=== PATIENT | female | born 1980 | race Caucasian/White ===

== ENCOUNTER 2023-02-07 07:34 | Outpatient (CLI) | payer BC, SELFPAY | END 2023-02-07 07:35 | disposition home or self-care (01) | LOC: NFLDREF 15:54 | PROVIDERS: Visit Provider Surgery | DX: E78.5 Hyperlipidemia, unspecified (principal) | CPT/HCPCS: 80061 ==

== ENCOUNTER 2023-05-21 14:55 | Outpatient (CLI) | payer BC, SELFPAY ==
--- OUTSIDE RECORDS SUMMARY | 2023-05-21 14:58 | XMS_ITS | Continuity of Care Document ---
Author Name Unknown Organization [facility] Address [address] [place] [address] Phone Care Team Providers Care Embedded Software Development Engineer Name Role Phone Coleman Eckert MD Unavailable Unavailable Allergies, Adverse Reactions, Alerts Substance Reaction Status Criticality No Known Allergies Active No Inform ation Medications Medication Instructions Dosage Effective Dates (start - stop) Status Comments omeprazole 20 mg capsule,delayed release take 1 capsule by oral route every day before a meal 20 MG - Active Procedures Procedure Date Office/Outpatient Visit, [facility] Advance Directives Directive Yes / No Effective Date File Name No Information Encounters Encounter Description Practice Location Reason(s) For Visit Diagnoses Date Provider Providers Copied on Encounter [facility], [address], [place], [address], [place] tel:[phone] [facility] , No Information 9 Babar Cee. [facility] [address], [place], [address], [place]. tel:[phone] Office/Outpa tient Visit, [facility], [address], [place], [address], [place] tel:[phone] [facility] , Psoriatic arthritis (chief complaint) Arthropathic psoriasis, unspecifiedO ther psoriasis 9 Babar Cee. [facility] [address], [place], [address], [place]. tel:[phone] Referring Provider: Coleman Ngo, [facility] [address], [place], [address]. tel:[phone] Family History Family Member Type Diagnosis Age At Onset No Information Payers Payer name Insurance type Covered democrat ID Authordeirdre wilkerson(s) [facility] [id number] Social History Type Description Quantity Date Captured Comments Sex Female Smoking Status No Information Chief Complaint And Reason For Visit No Information Reason For Referral Reason For Referral No Information Plan Of Treatment Date Type Action Status No Information History Of Present Illness Encounter Date Complaint History Of Prese nt Illness Psoriatic arthritis Functional Status Date Functional Assessmen t No Information Instructions Date Instruction Additional Infor mation She has very mild ps oriasis as well. She feels no need to proceed with any more aggressive treatment of that. Related to Other psoriasis Overall, she has don e very well with her psoriatic arthritis since I last saw her more than 8 years ago. She has not developed any deformities and has only mild tenderness in a few joints. There is no active synovitis on exam today. I'm going to do x-rays of her hands but I did not expecting to recommend any specific treatment. I did encourage her to call if symptoms worsen. Related to Arthropathic psoriasis, unspecified Assessments Type Assessment Date No Information Patient Care Teams Name Effective Dates (start - stop) Status Members No Information
--- NOTE | 2023-05-21 15:00 | CRLHL7_ITS ---
For Patients: As a result of the Century Cures Act, medical imaging exams and procedure reports are released immediately into your electronic medical record. You may view this report before your referring provider. If you have questions, please contact your health care provider. BILATERAL SCREENING MAMMOGRAM WITH COMPUTER-AIDED DETECTION AND TOMOSYNTHESIS TECHNIQUE: CC and MLO views were obtained. These mammographic images have been obtained using full-field digital technique. These mammographic images were interpreted with the benefit of computer-aided detection. Breast tomosynthesis was used in this interpretation. COMPARISON FILM: 04/19/22, 04/17/21, 04/06/20. FINDINGS: The breasts are heterogeneously dense, which may obscure small masses. IMPRESSION: There is no radiographic evidence for malignancy. ASSESSMENT: BI-RADS Category 1: Negative RECOMMENDATION: Routine screening mammogram in 1 year. A lay language report of this examination will be provided to the patient. BRENT OMALLEY M.D. Diagnostic Radiologist [email or web address] ANITRA/tad Transcribed: 05/22/2023, 5:[address]/Dictated by: Brent Omalley MD @ 05/22/2023 12:21:00 PM (Electronically Signed)
== END 2023-05-21 14:56 | disposition home or self-care (01) ==
LOC: MAMMO 14:57
PROVIDERS: Visit Provider Surgery
DX: Z12.31 Encounter for screening mammogram for malignant neoplasm of breast (principal); R92.2 Inconclusive mammogram
CPT/HCPCS: 77063; 77067

== ENCOUNTER 2024-04-22 10:00 | Outpatient (CLI) | payer BC, SELFPAY ==
--- OUTSIDE RECORDS SUMMARY | 2024-04-22 10:03 | XMS_ITS | Continuity of Care Document ---
Author Organization [facility] Address [address] [place] [address] Phone Care Team Providers Care Paint Mixer Machine Name Role Phone Coleman Eckert MD Unavailable Unavailable Allergies, Adverse Reactions, Alerts Substance Reaction Status Criticality No Known Allergies Active No Inform ation Medications Medication Instructions Dosage Effective Dates (start - stop) Status Comments omeprazole 20 mg capsule,delayed release take 1 capsule by oral route every day before a meal 20 MG - Active Procedures Procedure Date Office/Outpatient Visit, [facility] Advance Directives Directive Yes / No Effective Date File Name No Information Encounters Encounter Description Practice Location Reason(s) For Visit Diagnoses Date Provider Providers Copied on Encounter [facility], [address], [place], [address], [place] tel:[phone] [facility] , No Information 9 Babar Cee. [facility] [address], [place], [address], [place]. tel:[phone] Office/Outpa tient Visit, [facility], [address], [place], [address], [place] tel:[phone] [facility] , Psoriatic arthritis (chief complaint) Arthropathic psoriasis, unspecifiedO ther psoriasis 9 Babar Cee. [facility] [address], [place], [address], [place]. tel:[phone] Referring Provider: Coleman Ngo, [facility] [address], [place], [address]. tel:[phone] Family History Family Member Type Diagnosis Age At Onset No Information Payers Payer name Insurance type Covered alliance party ID Authordeirdre wilkerson(s) [facility] [id number] Social History Type Description Quantity Date Captured Comments Sex Female Smoking Status No Information Chief Complaint And Reason For Visit No Information Reason For Referral Reason For Referral No Information History Of Present Illness Encounter [...]
--- OUTSIDE RECORDS SUMMARY | 2024-04-22 10:04 | XMS_ITS | Clinical Summary ---
Author Organization [facility] Address [place], [place] [address] Care Team Providers Care Loom Control Chain Builder Name Role Phone Bhargavi Hall MD Primary Care Provider [phone] Allergies No known active allergies Medications Medication Sig Dispensed Refills Start Date End Date Status Breast Pump - PurchaseIndications: Lactating mother For home use. Gestation age at delivery: 41 weeks. Reason for need: lactating. Length of need: 99y 1 Device 12/29/2016 Active Active Problems Problem Noted Date Diagnosed Date Post-dates 12/28/2016 Normal delivery 09/10/2012 Resolved Problems Problem Noted Date Diagnosed Date Resolved Date Normal delivery 04/29/2009 09/10/2012 Other specified screening(V28.89) 10/19/2008 09/10/2012 Supervision of normal first 10/19/2008 04/30/2009 Immunizations Name Administration Dates Next Due Tdap 11/11/2008 Tdap, Unspecified 09/27/2016 Family History Medical History Relation Name Comments Good Health Father Heart Disease Mother hashimotos Hyperlipidemia Mother Good Health Sister Relation Name Status Comments Father Mother Sister Social History Tobacco Use Types Packs/Day Years Used Date Smoking Tobacco: Never Smokeless Tobacco: Never Tobacco Cessation:Counseling Given: Yes Alcohol Use Standard Drinks/Week Comments Yes 2 (1 standard drink = 0.6 oz pur e alcohol) quit with Sex and Gender Information Value Date Recorded Sex Assigned at Not on file Gender Identity Not on file Sexual Orientation Not on file Obstetrics History Para Term AB IAB SAB Ectopic Multiple Livin g Live Births 4 3 3 0 1 0 1 0 0 3 3 Date Outcome GA Total Labor Labor/2nd/3rd Weight Sex Type Anes PTL Madai A1 A5 Name Clin 2008 Term 40w 0d F Vag Livin g Coco 2011 Term 40w 4d 3.86 kg (8 lb 8 oz) M Vag Livin g 9 9 ERICSO N,BB Delivery Location:[facility] 2015 SAB 10w 0d 2016 Term 41w 0d 3.38 kg (7 lb 7.2 oz) F Vag Epidur al N Livin g 9 9 ERICSO N,BG DANIEL [place] Delivery Location:[facility] Last Filed Vital Signs Vital Sign Reading Time Taken Comments Blood Pressure 111/55 12/28/2016 11:40 PM TOMOGRAPHY TECHNOLOGIST Pulse 65 12/28/2016 11:40 PM TOMOGRAPHY TECHNOLOGIST Temperature 36.9 ??C (98.4 ??F) 12/29/2016 1 0:00 AM TOMOGRAPHY TECHNOLOGIST Respiratory Rate 16 12/28/2016 11:4 0 PM TOMOGRAPHY TECHNOLOGIST Oxygen Saturation 98% 12/28/2016 11: 40 PM TOMOGRAPHY TECHNOLOGIST Inhaled Oxygen Concentration - - Weight 79.3 kg (174 lb 12.8 oz) 017 10:32 AM TOMOGRAPHY TECHNOLOGIST Height 167.6 cm (5' 6) 12/27/2016 10:3 2 AM TOMOGRAPHY TECHNOLOGIST Body Mass Index 28.21 12/27/2016 10:32 AM TOMOGRAPHY TECHNOLOGIST Plan of Treatment Health Maintenance Due Date Last Done Comments Depression screening for age 12+ 1990 BMI (ht and wt on same day) for age 18+ 1996 Hepatitis C screening for ag e 18-79 1996 Pap test for age 21-65 10/26/2011 10/26/2008 COVID-19 vaccine series ( season) 2023 Lipids for age 45-75 2023 Mammogram for age 45-75 2023 Influenza for age 9-49 07/12/2024 Colonoscopy through age 75 08/24/202508/24, 08/24/2020, 08/24/2020 Tetanus booster 09/27/2026 09/27/2016, 11/11/2008 HIV for age 15-65 Completed 10/19/2008 Tdap Completed 09/27/2016, 11/11/2008 Pneumococcal series for age 6-64 Aged Out No longer eligible b ased on patient's age to complete this topic Procedures Procedure Name Priority Date/Time Associated Diagnosis Comments COLONOSCOPY 08/24/2020 8:27 AM CDT OUTSOLE CEMENTER MACHINE THIN PREP PAP SCREEN IMAGED Routine 10/26/2008 10:22 AM TOMOGRAPHY TECHNOLOGIST Supervision of Normal First ANTI HIV 1/2 Routine 10/19/2008 9:22 AM TOMOGRAPHY TECHNOLOGIST Supervision of Normal First from Last 3 Months or Most Recently Relevant to Health Maintenance Results * COLONOSCOPY (08/24/2020 8:27 AM CDT) 08/24/2020 8:27 AM CDT Narrative Transcriptions Addi Bueno MD - 08/24/2020 9:49 AM CDT Patient Name: Anna Romeo Procedure Date: 08/24/2020 Gender: Female Date of : 1980 Admit Type: Outpatient Procedure: Colonoscopy Proceduralist: Addi Bueno MD , Melissa Hastings (Nurse) Indications/Pre-Op Diagnosis: Colon cancer screening in patient with 1st-degree relative having advanced adenomaof the colon before age 60, This is thepatient's first colonoscopy Medications: Fentanyl 100 micrograms IV, Midazolam 2 mgIV, The level of sedation administered wasmoderate Procedure Description: The patient had risks, benefits and alternatives explained to andgave informed consent. The patient had a stable cardiopulmonary status and judged an adequate candidate for conscious sedation. The colonoscope was passed through the anus and advanced to 5 cm into the ileum. The colonoscopy was performed without difficulty. Thepatient tolerated the procedure well. The quality of the bowel preparationwas excellent. The terminal ileum, ileocecal valve, appendiceal orifice,and rectum were photographed. Complications: No immediate complications. Estimated Blood Loss & Specimen: Estimated blood loss: none. Specimen collected - None Findings: The perianal and digital rectal examinations were normal. The terminal ileum appeared normal. The entire examined colon appeared normal on direct and retroflexion views. Impressions/Post-Op Diagnosis: - The examined portion of the ileum was normal. - The entire examined colon is normal on direct and retroflexionviews. - No specimens collected. Recommendation: - Patient has a contact number available for emergencies. The signsand symptoms of potential delayed complications were discussed with the patient. Return to normal activities tomorrow. Written discharge instructions were provided to the patient. - Resume previous diet. - Continue present medications. - Repeat colonoscopy in 5 years for screening purposes. Moderate Sedation: Moderate (conscious) sedation was administered by the endoscopy nurse and supervised by the endoscopist. The following parameters were monitored: oxygen saturation, heart rate, respiratory rate, blood pressure, adequacy of pulmonary ventilation and reponse to care. [facility] and nursing notes for moderate sedation details. Total physician intraservice time was 27 minutes. Addi Bueno MD 08/24/2020 9:49:31 AM This report has been signed electronically. Note Initiated On: 08/24/2020 8:27 AM Procedure Code(s): --- Professional --- 30913, Colonoscopy, flexible; diagnostic, including collection of specimen(s) bybrushing or washing, when performed (separateprocedure) Diagnosis Code(s): --- Professional --- Z83.71, Family history of colonic polyps CPT copyright 2019 [employer]. All rights reserved. The codes documented in this report are preliminary and upon medical librarian reviewmay be revised to meet current compliance requirements. Scope In: 9:19:52 AM Scope Withdrawal Time 0 hours 16 minutes 33 seconds Scope Out: 9:44:50 AM Addi Bueno MD PROCEDURE ORD * OUTSOLE CEMENTER MACHINE THIN PREP PAP SCREEN IMAGED (10/26/2008 10:22 AM TOMOGRAPHY TECHNOLOGIST) CYTOLOGY ??CYTOPATHOLOGY REPORT ??[facility] ?? Status: Final Report ? [id number] ?? CLINICAL INFORMATION ?Date of Last LMP ?: OB ?Last Pap Date ? : 08/2007 ?Last Pap Result ? : NIL ?ABN [place]/Bx Past 5 YRS: None ?Hormone Usage ? : None ?Menstrual Status ?: ?[place]/Bx done today ?: No ?Additional Data ? : None given ?? HPV Request ?: HPV if ASCUS ?? SPECIMEN SOURCE ?: Cervical/vaginal ThinPrep Vial, screening ?? SPECIMEN ADEQUACY ?: Satisfactory for evaluation No ?endocervical component seen in a ?patient. ? INTERPRETATION/RES ULT: ?Negative for intraepithelial lesion or malignancy (NIL) ? Cytology 1st Screener : ??ll ?? Signed by: ? ll ?? This specimen was screened by the FDA approved ThinPrep Imaging ?? System and manually reviewed. ?? NOTE: The Pap test is a screening technique, not a diagnostic ?? procedure. It is used primarily to screen for squamous cancers and ?? precursor lesions. Published studies have shown that it is subject to ?? both false negative and false positive results. The pap test should ?? not be used as the sole means to diagnose or exclude pre-malignant and ?? malignant lesions. ?? COLLECTED: 10/26/08 ?? ACCESSIONED: 10/26/08 ?? SIGNED: 11/01/08 [facility] PAP [place] CODE NIL [facility] Cervical (Cervical) 10/26/2008 10:22 AM TOMOGRAPHY TECHNOLOGIST 10/26/2008 10:20 AM TOMOGRAPHY TECHNOLOGIST Apryl Mccallum MD PATHOLOGY/CYTOLO GY [facility] [place] ZIP [address] [place] [address] * ANTI HIV 1/2 (10/19/2008 9:22 AM TOMOGRAPHY TECHNOLOGIST) ANTI HIV 1/2 Non-reacti ve [facility] Blood specimen (specimen) BLOOD SPECIMEN / Unknown 10/19/2008 9:22 AM TOMOGRAPHY TECHNOLOGIST 10/19/2008 9:19 AM TOMOGRAPHY TECHNOLOGIST Apryl Mccallum MD SEND OUTS [facility] [place] [address]IP [address] [place] [id number] from Last 3 Months or Most Recently Relevant to Health Maintenance Advance Directives * Full Code (Latest Code Status on File) Date Activated Date Inactivated Comments 12/28/2016 7:24 AM 12/29/2016 4:10 PM * Full Code Date Activated Date Inactivated Comments 12/27/2016 10:52 AM 12/28/2016 7:24 AM * Full Code Date Activated Date Inactivated Comments 12/25/2016 12:55 AM 12/25/2016 4:50 AM * Full Code Date Activated Date Inactivated Comments 12/07/2016 8:47 AM 12/08/2016 2:18 AM * Full Code Date Activated Date Inactivated Comments 09/09/2012 1:34 PM 09/10/2012 8:55 PM Care Teams Loom Control Chain Builder Relationship Specialty Start Date End Date Bhargavi Hall MD [address] [facility] [address] [place], [place] [id number] PCP - General Internal Medicine 12/26/16
--- NOTE | 2024-04-22 10:15 | CRLHL7_ITS ---
For Patients: As a result of the Cures Act, medical imaging exams and procedure reports are released immediately into your electronic medical record. You may view this report before your referring provider. If you have questions, please contact your health care provider. BILATERAL SCREENING MAMMOGRAM WITH COMPUTER-AIDED DETECTION AND TOMOSYNTHESIS TECHNIQUE: CC and MLO views were obtained. These mammographic images have been obtained using full-field digital technique. These mammographic images were interpreted with the benefit of computer-aided detection. Breast Tomosynthesis was used in this interpretation. COMPARISON FILM: 05/21/23, 04/19/22, 04/17/21. FINDINGS: The breasts are heterogeneously dense, which may obscure small masses IMPRESSION: There is no radiographic evidence for malignancy. ASSESSMENT: BI-RADS Category 1: Negative RECOMMENDATION: Routine screening mammogram in 1 year. A lay language report of this examination will be provided to the patient. VIRY PERSAUD M.D. Diagnostic/Nuclear Medicine Radiologist [email or web address] ELENITA:nyla Transcribed: 2:29 p.mYue redmond/Dictated by: Viry Persaud MD @ 04/23/2024 9:22:00 AM (Electronically Signed)
== END 2024-04-22 10:01 | disposition home or self-care (01) ==
LOC: MAMMO 10:01
PROVIDERS: Visit Provider Surgery
DX: Z12.31 Encounter for screening mammogram for malignant neoplasm of breast (principal); R92.2 Inconclusive mammogram
CPT/HCPCS: 77063; 77067

== ENCOUNTER 2025-01-26 07:19 | Outpatient (CLI) | payer BC, SELFPAY | END 2025-01-26 07:20 | disposition home or self-care (01) | PROVIDERS: Visit Provider Surgery | DX: Z13.6 Encounter for screening for cardiovascular disorders (principal); Z13.818 Encounter for screening for other digestive system disorders | CPT/HCPCS: 80061; 80076; 84478 ==

== ENCOUNTER 2025-05-10 11:06 | Outpatient (CLI) | payer BC, SELFPAY ==
--- NOTE | 2025-05-10 10:45 | CRLHL7_ITS ---
For Patients: As a result of the Century Cures Act, medical imaging exams and procedure reports are released immediately into your electronic medical record. You may view this report before your referring provider. If you have questions, please contact your health care provider. INDICATION: BILATERAL SCREENING MAMMOGRAM, ASYMPTOMATIC 44 Y/O FEMALE COMPARISON: 04/22/2024, 05/21/2023, 04/19/2022 TECHNIQUE: Digital mammogram in CC and MLO projections including computer-aided detection (CAD) and tomosynthesis. BREAST COMPOSITION: The breasts are heterogeneously dense, which may obscure small masses. FINDINGS: No suspicious findings. ASSESSMENT: BI-RADS 1 Negative RECOMMENDATION: Annual screening mammogram. A lay language report of this examination will be provided to the patient. Dictated by: Brent Caldwell MD @ 05/10/2025 11:46:15 (Electronically Signed)
--- OUTSIDE RECORDS SUMMARY | 2025-05-10 11:08 | XMS_ITS | Clinical Summary ---
Author Organization [facility] Address [address] [place] [address] Care Team Providers Care Manager Renewable Energy Name Role Phone Bhargavi Hall MD Primary Care Provider [phone] Allergies No known active allergies Medications Breast Pump - PurchaseIndicat ions:Lactating mother (HC) For home use. Gestation age at delivery: 41 weeks. Reason for need: lactating. Length of need: 99y 1 Device 7 Active Active Problems Problem Noted Date Diagnosed Date Post-dates 12/28/2016 Normal delivery 09/10/2012 Resolved Problems Problem Noted Date Diagnosed Date Resolved Date Normal delivery 04/29/2009 09/10/2012 Other specified screening(V28.89) 10/19/2008 09/10/2012 Supervision of normal first 10/19/2008 04/30/2009 Immunizations Immunization Administration Dates Next Due Tdap 11/11/2008 Tdap, [...] 0.6 oz pur e alcohol) quit with Comments No Sex and Gender Information Value Date Recorded Sex Assigned at Not on file Legal Sex Female 6:22 AM OUTSIDE PLANT TECHNICIAN Gender Identity Not on file Sexual Orientation Not on file 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 Not on file Not on file Obstetrics History Para Term [...] Livin g 9 9 ERICSO N,BB Delivery Location:[facility] 2015 SAB 10w 0d 2016 Term 41w 0d 3.38 kg (7 lb 7.2 oz) F Vag Epidur al N Livin g 9 9 ERICSO N,BG DANIEL Rossi rand Delivery Location:[facility] Last Filed Vital Signs Vital Sign Reading Time Taken Comments Blood Pressure 111/55 12/28/2016 11:40 PM OUTSIDE PLANT TECHNICIAN Pulse 65 12/28/2016 11:40 PM OUTSIDE PLANT TECHNICIAN Temperature 36.9 C (98.4 F) 12/29/2016 10:00 AM OUTSIDE PLANT TECHNICIAN Respiratory Rate 16 12/28/2016 11:4 0 PM OUTSIDE PLANT TECHNICIAN Oxygen Saturation 98% 12/28/2016 11: 40 PM OUTSIDE PLANT TECHNICIAN Inhaled Oxygen Concentration - - Weight 79.3 kg (174 lb 12.8 oz) 017 10:32 AM OUTSIDE PLANT TECHNICIAN Height 167.6 cm (5' 6) 12/27/2016 10:3 2 AM OUTSIDE PLANT TECHNICIAN Body Mass Index 28.21 12/27/2016 10:32 AM OUTSIDE PLANT TECHNICIAN Plan of Treatment Health Maintenance Due Date Last Done Comments Depression screening for age 12+ 1990 BMI (ht and wt on same day) for age 18+ 1996 Hepatitis C screening for ag e 18-79 1996 Hepatitis B series for 19+ ( 1 of 3 - 19+ 3-dose series) 1997 Pap test for age 21-65 10/26/2011 10/26/2008 Lipids for age 45-75 2023 Mammogram for age 45-75 2023 COVID-19 vaccine series ( season) 2024 Influenza Vaccine (Season Ended) 2025 Colonoscopy through age 75 08/24/202508/24, 08/24/2020, 08/24/2020 Tetanus booster 09/27/2026 09/27/2016, 11/11/2008 HIV for age 15-65 Completed 10/19/2008 Tdap Completed 09/27/2016, 11/11/2008 Pneumococcal series for age 6-49 Aged Out No longer eligible b ased on patient's age to complete this topic Procedures Procedure Name Priority Date/Time Associated Diagnosis Comments COLONOSCOPY 08/24/2020 8:27 AM CDT GAS CUTTING MACHINE OPERATOR THIN PREP PAP SCREEN IMAGED Routine 10/26/2008 10:22 AM OUTSIDE PLANT TECHNICIAN Supervision of Normal First (HC) ANTI HIV 1/2 Routine 10/19/2008 9:22 AM OUTSIDE PLANT TECHNICIAN Supervision of Normal First (HC) from Last 3 Months or Most Recently [...] reponse to care. [facility] and nursing notes for moderate sedation details. Total physician intraservice time was 27 minutes. Addi Bueno MD 08/24/2020 9:49:31 AM This report has been signed electronically. Note Initiated On: 08/24/2020 8:27 AM Procedure Code(s): --- Professional --- 67408, Colonoscopy, flexible; diagnostic, including collection of specimen(s) bybrushing or washing, when performed (separateprocedure) Diagnosis Code(s): --- Professional --- Z83.71, Family history of colonic polyps CPT copyright 2019 [employer]. All rights reserved. The codes documented in this report are preliminary and upon set up person reviewmay be revised to meet current compliance requirements. Scope In: 9:19:52 AM Scope Withdrawal Time 0 hours 16 minutes 33 seconds Scope Out: 9:44:50 AM us Addi Bueno MD PROCEDURE ORD Final Res ult * GAS CUTTING MACHINE OPERATOR THIN PREP PAP SCREEN IMAGED (10/26/2008 10:22 AM OUTSIDE PLANT TECHNICIAN) CYTOLOGY CYTOPATHOLOGY REPORT [facility] Status: Final Report [id number] CLINICAL INFORMATION Date of Last LMP : OB Last Pap Date : 08/2007 Last Pap Result : NIL ABN [place]/Bx Past 5 YRS: None Hormone Usage : None Menstrual Status : [place]/Bx done today : No Additional Data : None given HPV Request : HPV if ASCUS SPECIMEN SOURCE : Cervical/vaginal ThinPrep Vial, screening SPECIMEN ADEQUACY : Satisfactory for evaluation No endocervical component seen in a patient. INTERPRETATION/RES ULT: Negative for intraepithelial lesion or malignancy (NIL) Cytology 1st Screener : ll Signed by: jacquelyn This specimen was screened by the FDA approved ThinPrep Imaging System and manually reviewed. NOTE: The Pap test is a screening technique, not a diagnostic procedure. It is used primarily to screen for squamous cancers and precursor lesions. Published studies have shown that it is subject to both false negative and false positive results. The pap test should not be used as the sole means to diagnose or exclude pre-malignant and malignant lesions. COLLECTED: 10/26/08 ACCESSIONED: 10/26/08 SIGNED: 11/01/08 [facility] PAP [place] CODE NIL [facility] Cervical (Cervical) 10/26/2008 10:22 AM OUTSIDE PLANT TECHNICIAN 10/26/2008 10:20 AM OUTSIDE PLANT TECHNICIAN Apryl Mccallum MD PATHOLOGY/CYTOLOGY Final Result [facility] [place]NAL ZIP [id number] [address] * ANTI HIV 1/2 (10/19/2008 9:22 AM OUTSIDE PLANT TECHNICIAN) ANTI HIV 1/2 Non-reacti ve [facility] Blood specimen (specimen) BLOOD SPECIMEN / Unknown 10/19/2008 9:22 AM OUTSIDE PLANT TECHNICIAN 10/19/2008 9:19 AM OUTSIDE PLANT TECHNICIAN Apryl Mccallum MD SEND OUTS Final Re sult [facility] INTERNAL ZIP [id number] [address] from Last 3 Months or Most Recently Relevant to Health Maintenance Insurance [facility] Advance Directives * Full Code (Latest Code [...] 1:34 PM 09/10/2012 8:55 PM Care Teams Manager Renewable Energy Relationship Specialty Start Date End Date Bhargavi Hall MD [address] [facility] [address] [place] [address] PCP - General Internal Medicine 12/26/16
--- OUTSIDE RECORDS SUMMARY | 2025-05-11 02:07 | XMS_ITS | Clinical Summary ---
Author Organization [facility] Address [address] [place] [address] Care Team Providers Care Graphite Disk Assembler Name Role Phone Bhargavi Hall MD Primary Care Provider [phone] Allergies No known active allergies Medications Breast [...] 09/10/2012 Supervision of normal first 10/19/2008 04/30/2009 Encounters Date Type Department Care Team Description 05/10/[address] [address] [place] [address] Addi Bueno MD from Last 3 Months Immunizations Immunization Administration Dates Next Due Tdap [...] on file Legal Sex Female 6:22 AM LITHOGRAPH PRINTER Gender Identity Not on file Sexual Orientation [...] Livin g 9 9 ERICSO N,BB Delivery Location:[facility] 2015 SAB 10w 0d 2016 Term 41w 0d 3.38 kg (7 lb 7.2 oz) F Vag Epidur al N Livin g 9 9 ERICSO N,BG DANIEL [place] Delivery Location:[facility] Last Filed Vital Signs Vital Sign Reading Time Taken Comments Blood Pressure 111/55 12/28/2016 11:40 PM LITHOGRAPH PRINTER Pulse 65 12/28/2016 11:40 PM LITHOGRAPH PRINTER Temperature 36.9 C (98.4 F) 12/29/2016 10:00 AM LITHOGRAPH PRINTER Respiratory Rate 16 12/28/2016 11:4 0 PM LITHOGRAPH PRINTER Oxygen Saturation 98% 12/28/2016 11: 40 PM LITHOGRAPH PRINTER Inhaled Oxygen Concentration - - Weight 79.3 kg (174 lb 12.8 oz) 017 10:32 AM LITHOGRAPH PRINTER Height 167.6 cm (5' 6) 12/27/2016 10:3 2 AM LITHOGRAPH PRINTER Body Mass Index 28.21 12/27/2016 10:32 AM LITHOGRAPH PRINTER Plan of Treatment Upcoming Encounters Date Type Department Care Team (Late st Contact Info) Description 09/17/2025 8:30 AM LITHOGRAPH PRINTER Office [facility] [address] [place] [address] Addi Bueno MD [address] [place] [address] Health Maintenance Due Date Last Done Comments [...] Diagnosis Comments COLONOSCOPY 08/24/2020 8:27 AM CDT HOTEL NIGHT AUDITOR THIN PREP PAP SCREEN IMAGED Routine 10/26/2008 10:22 AM LITHOGRAPH PRINTER Supervision of Normal First (HC) ANTI HIV 1/2 Routine 10/19/2008 9:22 AM LITHOGRAPH PRINTER Supervision of Normal First (HC) from Last [...] reponse to care. Please refer to the [facility] medical record flowsheets and nursing notes for moderate sedation details. Total physician intraservice time was 27 minutes. Addi Bueno MD 08/24/2020 9:49:31 AM This report has been signed electronically. Note Initiated On: 08/24/2020 8:27 AM Procedure Code(s): --- Professional --- 67132, Colonoscopy, flexible; diagnostic, including collection of specimen(s) bybrushing or washing, when performed (separateprocedure) Diagnosis Code(s): --- Professional --- Z83.71, Family history of colonic polyps CPT copyright 2019 [employer]. All rights reserved. The codes documented in this report are preliminary and upon slate mixer reviewmay be revised to meet current compliance requirements. Scope In: 9:19:52 AM Scope Withdrawal Time 0 hours 16 minutes 33 seconds Scope Out: 9:44:50 AM us Addi Bueno MD PROCEDURE ORD Final Res ult * HOTEL NIGHT AUDITOR THIN PREP PAP SCREEN IMAGED (10/26/2008 10:22 AM LITHOGRAPH PRINTER) CYTOLOGY CYTOPATHOLOGY REPORT [facility] Status: Final Report [id number] CLINICAL INFORMATION Date of Last LMP : OB Last Pap Date : 08/2007 Last Pap Result : NIL ABN [place]/Bx Past 5 YRS: None Hormone Usage : None Menstrual Status : [place]/Bx done today : No Additional Data : None given HPV Request : HPV if ASCUS SPECIMEN SOURCE : Cervical/vaginal ThinPrep Vial, screening SPECIMEN ADEQUACY : Satisfactory for evaluation No endocervical component seen in a patient. INTERPRETATION/RES ULT: Negative for intraepithelial lesion or malignancy (NIL) Cytology 1st Screener : jacquelyn Signed by: jacquelyn This specimen was screened [...] lesions. COLLECTED: 10/26/08 ACCESSIONED: 10/26/08 SIGNED: 11/01/08 [facility] PAP [place] CODE NIL [facility] Cervical (Cervical) 10/26/2008 10:22 AM LITHOGRAPH PRINTER 10/26/2008 10:20 AM LITHOGRAPH PRINTER Result [facility] Apryl Mccallum MD PATHOLOGY/CYTOLOGY Final Result [facility] INTERNAL ZIP [id number] [address] * ANTI HIV 1/2 (10/19/2008 9:22 AM LITHOGRAPH PRINTER) ANTI HIV 1/2 Non-reacti ve [facility] Blood specimen (specimen) BLOOD SPECIMEN / Unknown 10/19/2008 9:22 AM LITHOGRAPH PRINTER 10/19/2008 9:19 AM LITHOGRAPH PRINTER Apryl Mccallum MD SEND OUTS Final Re sult [facility] INTERNAL ZIP [id number] [address] from Last 3 Months or Most Recently Relevant to Health Maintenance Insurance Advance Directives * Full Code (Latest Code [...] 1:34 PM 09/10/2012 8:55 PM Care Teams Graphite Disk Assembler Relationship Specialty Start Date End Date Bhargavi Hall MD [address] [facility] [address] [place] [address] PCP - General Internal Medicine 12/26/16
== END 2025-05-10 11:07 | disposition home or self-care (01) ==
LOC: MAMMO 11:07
PROVIDERS: Visit Provider Surgery
DX: Z12.31 Encounter for screening mammogram for malignant neoplasm of breast (principal); R92.333 Mammographic heterogeneous density, bilateral breasts
CPT/HCPCS: 77063; 77067

== ENCOUNTER 2025-09-17 08:17 | Outpatient (CLI) | payer BC, SELFPAY ==
--- NOTE | 2025-09-17 09:43 | P.ANES_ITS ---
Anesthesia Charges Start Date/Time Anesthesia Start Date: 09/17/25 Anesthesia Start Time: 08:58 Stop Date/Time Anesthesia Stop Date: 09/17/25 Anesthesia Stop Time: 09:42 Coding CPT Codes CPT Codes: ANES UPR LWR GI NDSC PX - 49520 ([id number]) P1 - NORMAL HEALTHY PATIENT, QK - FLY RAIL OPERATOR 2-4 CNCRNT ANES PROC, QX - PEDIATRIC GENETICIST SVC W/ MED DIRECTION
--- NOTE | 2025-09-17 09:43 | W.ANESCHARGE ---
Anesthesia Charges Start Date/Time Anesthesia Start Date: 09/17/25 Anesthesia Start Time: 08:58 Stop Date/Time Anesthesia Stop Date: 09/17/25 Anesthesia Stop Time: 09:42 Coding CPT Codes CPT Codes: ANES UPR LWR GI NDSC PX - 92377 ([id number]) P1 - NORMAL HEALTHY PATIENT, QK - CLAIMS CONFIGURATION ANALYST 2-4 CNCRNT ANES PROC, QX - ENTERPRISE SOFTWARE ENGINEER SVC W/ MED DIRECTION
--- NOTE | 2025-09-17 10:10 | P.ANES_ITS ---
Anesthesia Charges Start Date/Time Anesthesia Start Date: 09/17/25 Anesthesia Start Time: 08:58 Stop Date/Time Anesthesia Stop Date: 09/17/25 Anesthesia Stop Time: 09:42 Coding CPT Codes CPT Codes: ANES UPR LWR GI NDSC PX - 68256 ([id number]) P1 - NORMAL HEALTHY PATIENT, QK - SALESPERSON SHEET MUSIC 2-4 CNCRNT ANES PROC, QX - MOLDER BENCH SVC W/ MED DIRECTION
--- NOTE | 2025-09-17 10:10 | W.ANESCHARGE ---
Anesthesia Charges Start Date/Time Anesthesia Start Date: 09/17/25 Anesthesia Start Time: 08:58 Stop Date/Time Anesthesia Stop Date: 09/17/25 Anesthesia Stop Time: 09:42 Coding CPT Codes CPT Codes: ANES UPR LWR GI NDSC PX - 54372 ([id number]) P1 - NORMAL HEALTHY PATIENT, QK - CENTRIFUGAL SUPERVISOR 2-4 CNCRNT ANES PROC, QX - RAILWAY TRACK WORKER SVC W/ MED DIRECTION
== END 2025-09-17 08:18 | disposition home or self-care (01) ==
LOC: OP CLINIC 08:18
PROVIDERS: Visit Provider Internal Medicine Gastroenterology
DX: Z12.11 Encounter for screening for malignant neoplasm of colon (principal); Z83.710 Family history of adenomatous and serrated polyps; R10.13 Epigastric pain; K21.9 Gastro-esophageal reflux disease without esophagitis
CPT/HCPCS: 00812; 00813; 43239; 45378; J2704